=== PATIENT | male | born 1960 | race Hispanic/Latino ===

== ENCOUNTER 2017-02-22 18:23 | Observation (INO) | payer OTHER ==
[~2017-02-22] VITALS: Ht 160 cm; Wt 83.6 kg
[2017-02-22 18:37] VITALS: BP 190/105; PULSE 103; RESP 26; O2SAT 96
[2017-02-22 18:53] LABS: BASOPHILS % (AUTO) 0.5 % (0-3); EOSINOPHILS % (AUTO) 3.1 % (0-5); MONOCYTES % (AUTO) 6.4 % (4-12); Mean Corpuscular Hemoglobin 30.4 pg (27.0-35.0); Mean Corpuscular Volume 85.3 fL (81-100); NEUTROPHILS % (AUTO) 52.9 % (40-74); Platelet Count 252 bil/L (150-400)
--- NOTE | 2017-02-22 18:53 | ED.REPORT ---
HPI-Chest Pain 40 and Over Date of Service Feb 22, 2017 ED Provider: Liane Mendoza MD This is a 56 year old male with a history of hypertension presenting to the emergency department complaining of left lower extremity swelling that began 6 hours ago. Patient states he found out his cousin due to [place] today morning, took a nap, woke up and noticed the lower extremity swelling. He then visited [facility] but left after examination, states he was upset with the care there. He then developed left sided sharp chest pain with tingling in the left arm. He is experiencing "little pricks" in his chest at this time. Denies shortness of breath, nausea, vomiting, diaphoresis, abdominal pain, fever, or chills. He states that he "breaths a little harder with my anxiety attacks." Pt has not taken ASA today. Denies recent falls, injuries, or changes in level of activity. Nursing Notes Stated Complaint: CHEST PAIN, LEFT ARM PAIN Chief Complaint: Chest Pain Nursing Notes Reviewed: Yes Allergies: Coded Allergies: No Known Allergies (Unverified Allergy, Unknown, 04/06/14) No Active Prescriptions or Reported Meds General Time Seen by MD: 18:42 Chief Complaint Chest pain Hx Obtained From: Patient Arrived By: Walk-in Sudden in Onset?: Yes Onset Occurred: 5 - 8 hours ago Symptom Duration: Since onset Severity: Current: Mild Pertinent Negative: Pt denies other symptoms Recent Healthcare: Recent doctor visit Similar Sx Previous: No Past Medical History Past Medical History Reports: Hypertension Past Surgical History Denies Smoking History Current Every Day Smoker Ambulatory Status Independent Review of Systems Constitutional: Denies: Chills, Fever Cardiovascular: Reports: Chest pain GI: Denies: Abdominal pain, Nausea, Vomiting Musculoskeletal: Reports: Extremity pain, Denies: Back pain Neurologic: Denies: Change LOC, Headache, Lightheaded, Numbness Complete sys rev & neg: except as marked. Physical Exam Initial Vital Signs Vital Signs (First) Date Time Temp Pulse Resp B/P Pulse Ox O2 Delivery O2 Flow Rate FiO2 02/22/17 18:37 36.6 103 26 190/105 96 Room Air Initial VS: Reviewed Head / Eyes: Atraumatic, Normocephalic, PERRL ENT: Mucous membranes moist, Conjunctiva normal, No scleral icterus Neck: Supple, Non-tender, Full range of motion Extremities: Vascular intact, Neuro intact Skin: Warm, Dry, No cyanosis Neurologic: Alert, Oriented, Nonfocal Psychiatric: Mood/affect normal, Behavior normal, Normal thought content General/Constitutional: Awake, Alert Respiratory / Chest: Breath sounds NL, Breath sounds = bilat, No respiratory distress, No rales, No rhonchi, No wheezing, No stridor, No chest tenderness Cardiovascular: Heart rate NL, Regular rhythm, Heart sounds NL, No murmurs, Peripheral circulation NL, Pulses = bilaterally, No gross BP differential Abdomen: Soft, Non-tender, McBurney's non-tender, No guarding, No rebound, BS normoactive, No distention, No hernia, No palpable mass Lower Extremity / Pelvis / MS: Neurologic intact, Vascular intact Left knee edema without erythema, extends to calf Interpretation & Diagnostics CT angio chest: Impression: No central or gross PE, however evaluation is suboptimal due to heterogenous contrast opacification and assessment of the segmental pulmonary arteries is nondiagnostic. No acute consolidation. Approved by: Richard Segundo MD Lab Results Interpretation Result Diagram: 02/22/17184002/22/17 184 Test 02/22/17 18:41 02/22/17 19:50 White Blood Count 8.3th/mm3 (3.8-10.1) Red Blood Count 4.77mil/mm3 (4.40-5.80) Hemoglobin 14.5g/dL (13.8-17.2) Hematocrit 40.7% (41.0-50.0) Mean Corpuscular Volume 85.3fL (81-100) Mean Corpuscular Hemoglobin 30.4pg (27.0-35.0) Mean Corpuscular Hemoglobin Concent 35.6% (32.0-37.0) Red Cell Distribution Width 13.3% (12.3-15.4) Platelet Count 252bil/L (150-400) Neutrophils (%) (Auto) 52.9% (40-74) Lymphocytes (%) (Auto) 37.0% (14-46) Monocytes (%) (Auto) 6.4% (4-12) Eosinophils (%) (Auto) 3.1% (0-5) Basophils (%) (Auto) 0.5% (0-3) Prothrombin Time 9.6sec (8.1-12.5) Prothromb Time International Ratio 0.90ratio Activated Partial Thromboplast Time 27.1sec (22.8-33.0) Sodium Level 139mEq/L (134-144) Potassium Level 4.2mEq/L (3.5-5.2) Chloride Level 101mEq/L (97-108) Carbon Dioxide Level 20mmol/L (18-29) Blood Urea Nitrogen 15mg/dL (6-24) Creatinine 0.97mg/dL (0.76-1.27) Estimat Glomerular Filtration Rate 85mL/min (>59) Glucose Level 136mg/dL (60-99) Calcium Level 9.2mg/dL (8.5-10.1) Magnesium Level 1.8mg/dL (1.6-2.6) Total Bilirubin 0.2mg/dL (0.0-1.2) Aspartate Amino Transf (AST/SGOT) 36U/L (0-50) Alanine Aminotransferase (ALT/SGPT) 50U/L (0-44) Alkaline Phosphatase 80U/L (25-150) Troponin T < 0.010ug/L (0.0-0.011) Pro-B-Type Natriuretic Peptide 5.00pg/mL (0-210) Total Protein 7.3g/dL (6.4-8.4) Albumin 4.1g/dL (3.4-5.0) Thyroid Stimulating Hormone (TSH) 1.350uIU/mL (0.450-4.500) Hold Aparicio Top Tube Received (Received) Hold Urine Received (Received) ECG Interpretation ECG Interpretation: NSR at a rate of 96 T-wave inversion in AVR and V1 No ST elevation T-wave inversion in lead [address] depression in V4 Time: 18:56 Interpreted by: ED physician X-Ray Chest Interpretation Chest Xray Interpretation: Left Knee: Small joint effusion. No fracture NL X-Ray Chest Findings: No acute disease Re-Eval/Medical Decision Med Decision/Clinical Course 56-year-old male with past medical history of hypertension, tobacco abuse, family history of ACS here with chest pain and leg swelling. Differential diagnosis includes but is not limited to ACS versus DVT versus Ramirez's cyst versus PE. Patient's ultrasound showed Ramirez's cyst. His PE study was negative. His initial troponin is negative, his CBC and CMP are unremarkable. He had complete resolution of chest pain with nitroglycerin, so I have admitted him to the hospitalist for ACS rule out. He is aware and amenable to admission. Time of Eval: 20:49 Re-Evaluation/Progress Note: Chest pain resolved with nitro. Discussed need for admission, all questions addressed. Consultation : Referral / Consult Name: Shannon Burnett DO Consulted With: Hospitalist Call Returned at: 21:10 Upper Inspector: Accepts admit Counseled Regarding: Diagnosis, Lab results, Need for follow-up, Need for admission Discharge & Departure Primary Impression: Chest pain Chest pain type: unspecified Qualified Code: R07.9 - Chest pain, unspecified Disposition: ADMITTED TO HOSPITAL Discharge Condition All VS Reviewed: Yes Condition: Stable Referrals: [facility] Scribe Attestation Portions of this note were transcribed by Gibson Forde. I, Dr. Mendoza personally performed the history, physical exam and medical decision-making; I reviewed and confirmed the accuracy of the information in the transcribed note. Signed by: sue Alex. 02/22/2017, 03:00. Laine Mendoza MD Feb 22, 2017 18:53 GIBSON FORDE Feb 22, 2017 19:02
[2017-02-22] MEDS ORDERED: 0.9% Sodium Chloride 500 ML IV ONE (19:05)
[2017-02-22 19:10] LABS: INR 0.9 ratio
[2017-02-22 19:28] LABS: Magnesium 1.8 mg/dL (1.6-2.6)
[2017-02-22 19:34] LABS: TROPONIN T < 0.010 ug/L (0.0-0.011)
[2017-02-22 20:00] VITALS: BP 157/89; PULSE 103; RESP 20; O2SAT 94
[2017-02-22 21:00] VITALS: BP 151/84; PULSE 90; RESP 20; O2SAT 95
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
[2017-02-22 22:00] VITALS: BP 158/92; PULSE 86; RESP 18; O2SAT 95
[2017-02-22] MEDS ORDERED: Polyethylene Glycol (PEG) 17 Gm Powder PO PRN (22:25)
[2017-02-22] MEDS ORDERED: Alum-Mag Hydrox-Simeth 30 mL Suspension PO PRN (22:25)
[2017-02-22] MEDS ORDERED: Ondansetron 2 mg/mL 2 mL Inj IVPUSH PRN (22:25)
[2017-02-22 22:45] VITALS: PULSE 84
--- NOTE | 2017-02-22 23:16 | NUR ---
Admit Pt admitted on the floor. VSS, afebrile. Complains of mild chest pain, describes the pain as stabbing but rate the score of 3/10. Pt also complains of left leg pain. Ice packs and Tylenol PRN for pain control. Admit and history done. Will continue to monitor.
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
[2017-02-23] MEDS ORDERED: Heparin 5,000 Unit/mL Inj SUBQ SCH (00:30)
[2017-02-23 01:51] VITALS: BP 168/104; PULSE 79; RESP 18; O2SAT 96
--- NOTE | 2017-02-23 02:38 | NUR ---
NPO for Cardiac Stress Test Pt has been put on NPO for Cardiac stress test. Pt states understanding.
--- NOTE | 2017-02-23 03:21 | NUR ---
Pain Pt complains of left arm pain with a scale of 3/10. Ice packs provided.
[2017-02-23 05:25] VITALS: BP 162/94; PULSE 75; RESP 18; O2SAT 95
[2017-02-23 05:53] LABS: BASOPHILS % (AUTO) 0.6 % (0-3); EOSINOPHILS % (AUTO) 4.2 % (0-5); MONOCYTES % (AUTO) 8.9 % (4-12); Mean Corpuscular Hemoglobin 30.2 pg (27.0-35.0); Mean Corpuscular Volume 85.1 fL (81-100); NEUTROPHILS % (AUTO) 50.2 % (40-74); Platelet Count 207 bil/L (150-400)
--- NOTE | 2017-02-23 06:01 | DRSVH ---
PROCEDURE: CT ANGIO CHEST PULMONARY EMBOLISM ([id number]) INDICATIONS: chest pain, tachy TECHNIQUE: After the administration of intravenous contrast, 2 mm thick sections acquired from the pulmonary api alma rosa to the posterior costophrenic angles. 3-dimensional maximum intensity projection (MIP) coronal a nd sagittal reformats were then acquired through the thorax. For radiation dose reduction, the follo wing was used: automated exposure control, adjustment of mA and/or kV according to patient size. COMPARISON: None. FINDINGS: Image quality: Suboptimal due to heterogeneous opacification of the segmental pulmonary arteries Pulmonary arteries: The central pulmonary arteries are normal in size, and demonstrate no intralumina l filling defects to suggest central pulmonary embolism. However, the heterogeneous contrast opacific ation of the segmental pulmonary arteries precludes accurate evaluation. Lungs and pleura: Lungs are clear. No pleural effusions or pneumothorax. Central and peripheral ai rways are patent. Mediastinum: Heart size is normal, without pericardial effusion. No mediastinal or hilar adenopathy . Thoracic aorta is normal in caliber and enhancement. Esophagus is normal in caliber, without hiat al hernia. Bones and chest wall: No suspicious bony lesions. Ribs and thoracic spine appear intact throughout. Thyroid gland unremarkable. No axillary or supraclavicular adenopathy. Abdomen: Visualized upper abdominal solid organs appear normal in the early arterial phase of enhanc ement. IMPRESSION: No central or gross pulmonary embolism, however evaluation is suboptimal due to heterogeneous contras t opacification and assessment of the segmental pulmonary arteries is nondiagnostic. No acute consolidation. Dictated by: Richard Segundo M.D. on 02/22/2017 at 20:29 Approved by: Richard Segundo M.D. on 02/22/2017 at 20:33
--- NOTE | 2017-02-23 06:01 | DRSVH ---
PROCEDURE: X-RAY CHEST, TWO VIEWS ([id number]) INDICATIONS: chest pain TECHNIQUE: 2 views of the chest were acquired. COMPARISON: None. FINDINGS: Surgical changes and devices: None. Lungs and pleura: No pleural effusions or pneumothorax. Lungs are clear. Mediastinum: Mediastinal contours are normal. Heart size is normal. Bones and chest wall: No suspicious bony abnormalities. Soft tissues appear unremarkable. IMPRESSION: No acute disease Dictated by: Richard Segundo M.D. on 02/22/2017 at 19:47 Approved by: Richard Segundo M.D. on 02/22/2017 at 19:47
--- NOTE | 2017-02-23 06:01 | DRSVH ---
PROCEDURE: X-RAY LEFT KNEE, THREE VIEWS ([id number]) INDICATIONS: knee swelling TECHNIQUE: 3 views of the knee were acquired. COMPARISON: None. FINDINGS: Bones: No fractures or dislocations. No suspicious bony lesions. Soft tissues: Small joint effusion IMPRESSION: Small joint effusion. No fracture Dictated by: Richard Segundo M.D. on 02/22/2017 at 19:48 Approved by: Richard Segundo M.D. on 02/22/2017 at 19:48
--- NOTE | 2017-02-23 06:02 | DRSVH ---
PROCEDURE: US VEINOUS LEG DUPLEX UNILATERAL, LEFT INDICATIONS: left leg swelling TECHNIQUE: Real-time imaging, as well as color and pulse Doppler interrogation, were performed of the lower extr emity deep veins from the inguinal ligament to the popliteal fossa. COMPARISON: None. FINDINGS: The deep veins are normally compressible, and free of intraluminal thrombus. Color and pu lse Doppler demonstrate normal phasic intraluminal flow. There is normal augmentation response to di stal compression maneuver. There is a Ramirez's cyst measuring 3.1 x 4.5 by 1.0 cm IMPRESSION: No evidence of deep venous thrombosis. Ramirez's cyst. Dictated by: Richard Segundo M.D. on 02/22/2017 at 22:07 Approved by: Richard Segundo M.D. on 02/22/2017 at 22:08
--- NOTE | 2017-02-23 06:57 | NUR ---
Left AMA Pt decided to leave AMA. Explained to pt about the diagnosis of chest pain if untreated could result into . Pt verbalized understanding and signed AMA form. Pt then escorted with the security outside the facility.
[2017-02-24] MEDS ORDERED: NICO1PAT6 TOPICAL (13:52)
[2017-02-24] MEDS ORDERED: LISI-571 PO (13:52)
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
== END 2017-02-23 07:00 | disposition left against medical advice (07) ==
LOC: SED 18:23 → MPC 21:46
PROVIDERS: ADMIT Internal Medicine; ATTEND Internal Medicine
DX: R07.9 Chest pain, unspecified (principal); I10 Essential (primary) hypertension; R73.9 Hyperglycemia, unspecified; F41.9 Anxiety disorder, unspecified; M71.22 Synovial cyst of popliteal space [Baker], left knee; E78.5 Hyperlipidemia, unspecified; M10.9 Gout, unspecified; Z91.14 Patient's other noncompliance with medication regimen; F17.210 Nicotine dependence, cigarettes, uncomplicated; Z59.0 Homelessness
CPT/HCPCS: 36415; 71020; 71275; 73562; 80053; 80061; 83036; 83735; 83880; 84443; 84484; 85025; 85610; 85730; 93005; 93970; 99285; G0378; J1644; J7040; Q9967

== ENCOUNTER 2017-02-23 08:48 | Observation (INO) | payer OTHER ==
[2017-02-23] VITALS (9 sets, daily range): BP systolic 138–161; BP diastolic 3–105; PULSE 68–96; RESP 17–25; O2SAT 94–98
[~2017-02-23] VITALS: Ht 160 cm; Wt 80.3 kg
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
[2017-02-23 10:10] LABS: BASOPHILS % (AUTO) 0.6 % (0-3); EOSINOPHILS % (AUTO) 2.1 % (0-5); Mean Corpuscular Hemoglobin 30.5 pg (27.0-35.0); Mean Corpuscular Volume 84.6 fL (81-100); NEUTROPHILS % (AUTO) 68.1 % (40-74); Platelet Count 215 bil/L (150-400)
--- NOTE | 2017-02-23 10:30 | DRSVH ---
PROCEDURE: X-RAY CHEST ONE VIEW, PORTABLE ([id number]) INDICATIONS: chest pain TECHNIQUE: One view of the chest was acquired. COMPARISON: [facility], CR, XR CHEST 2VW, 02/22/2017, 19:03. FINDINGS: Surgical changes and devices: None. Lungs and pleura: No pleural effusions or pneumothorax. Lungs are clear. Mediastinum: Mediastinal contours appear normal. Heart size is normal. Bones and chest wall: No suspicious bony lesions. Overlying soft tissues appear unremarkable. IMPRESSION: No acute pulmonary process. Dictated by: Lois Dasilva M.D. on 02/23/2017 at 10:28 Approved by: Lois Dasilva M.D. on 02/23/2017 at 10:28
[2017-02-23 10:45] LABS: Magnesium 1.9 mg/dL (1.6-2.6)
[2017-02-23 10:49] LABS: TROPONIN T < 0.010 ug/L (0.0-0.011)
[2017-02-23] MEDS ORDERED: Alum-Mag Hydrox-Simeth 30 mL Suspension PO PRN ×2 (12:15→18:40)
[2017-02-23] MEDS ORDERED: Ondansetron 2 mg/mL 2 mL Inj IVPUSH PRN ×2 (12:15→18:40)
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
[2017-02-23] MEDS ORDERED: Polyethylene Glycol (PEG) 17 Gm Powder PO PRN (18:40)
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
--- NOTE | 2017-02-23 19:03 | DRSVH ---
[facility] [address] [place] [address] Echocardiogram Report Name: CHRISTIANO AGUIAR PStudy Date: 02/23/2017 Height: 63 in Hospital [facility] Weight: 178 lb Gender: Male BSA: 1.8 m2 : 1960 Age: 56 yrs BP: 159/92 mm Hg Reason For Study: Chest pain Ordering Physician: [facility] Performed By: Wayne Delvalle Referring Physician: MONY ALEJANDRO Interpretation Summary 1) Normal left ventricular thickness, size, wall motion, and systolic function (EF 60-65%). 2) Normal right ventricular size and function. 3) No significant valvular abnormalities. 4) Hypertension present during the study (BP 159/92). 5) No prior Echo available for comparison. Procedure: A two-dimensional transthoracic echocardiogram with color flow and Doppler was performed. The study quality was technically adequate. There is no prior echocardiogram noted for this patient. The patient was in normal sinus rhythm during the exam. Left Ventricle: The left ventricle is normal in size, wall thickness, and systolic function without any focal wall motion abnormalities. The ejection fraction is estimated to be 60-65%. Assessment of diastolic parameters indicates normal left ventricular diastolic function and normal filling pressures. Right Ventricle: The right ventricle is normal in size, thickness and function. Atria: Both atria are normal in size. There is no Doppler evidence for an interatrial shunt. Mitral Valve: The mitral valve is normal in structure and function. There is no mitral regurgitation noted. Aortic Valve: The aortic valve is trileaflet. The aortic valve opens well. There is mild aortic valve sclerosis. There is no aortic valve stenosis. No aortic regurgitation is present. Tricuspid Valve: The tricuspid valve is normal. Pulmonary artery pressures cannot be estimated because of the lack of a measurable TR jet velocity. Pulmonic Valve: The pulmonic valve leaflets are thin and pliable; valve motion is normal. There is no pulmonic valvular regurgitation. Great Vessels: The aortic root is normal size. The ascending aorta is normal in size. The aortic arch is normal in size. The pulmonary artery is normal size. The IVC is of normal diameter and collapses greater than 50% with a sniff. This suggests a low right atrial pressure of 3 mm Hg. Pericardium/ Pleura There is no pericardial effusion. There is no pleural effusion. MMode/2D Measurements & Calculations LVIDd: 4.8 cm LA dimension: 4.1 cm RA long axis LVOT diam: 2.1 cm LVIDs: 2.9 cm AoV Opening FS: 38.1 % LA A2 area: 14.7 cm RA area EPSS: 0.58 cm LA A4 area: 17.6 cm Ao root diam IVSd: 0.96 cm LA length (vol) : 11.0 cm LVPWd: 0.90 cm RA vol Aortic Jxn: 2.5 cm LA vol: 42.7 ml : 23.2 ml asc Aorta Diam LA vol index RA : 12.6 mm2 Ao Arch Diam (Prox : 23.2 ml/m2 Trans): 2.6 cm LV resendiz. diameter/BSA LV sys. diameter/BSA RVD1 (basal) RVD2 (mid): 3.2 cm (cm/m^2): 2.6 (cm/m^2): 1.6 TAPSE: 2.2 cm Doppler Measurements & Calculations Ao V2 max MV E max boo MV E/A: 0.80 PA V2 max : 149.4 cm/sec : 59.7 cm/sec Med Peak E' Boo : 132.0 cm/sec Ao max PG MV A max boo PA mean PG : 8.9 mmHg : 74.8 cm/sec E/E' med: 7.1 Ao mean PG MV P1/2t: 59.1 msec Lat Peak E' Boo PA Accel Time : 0.12 sec LVOT Max Boo E/E' lat: 5.7 : 109.4 cm/sec E/e' average: 6.4 Pulm A Revs Dur JADA(I,D): 2.6 cm sev ratio MV dec time MV P1/2t max boo Ao V2 mean LV V1 max PG : 0.20 sec : 101.8 cm/sec MVA(P1/2t): 3.7 cm2 Ao V2 VTI: 26.8 cm LV V1 VTI JADA(V,D): 2.5 cm2 : 20.7 cm PA V2 mean JADA indexed to BSA : 90.2 cm/sec (cm^2/m^2): 1.4 PA pr(Accel) : 26.1 mmHg Reading Physician:07:02 PM
--- NOTE | 2017-02-23 21:56 | NUR ---
CARRIE Pt had a CIWA score of 11, started 5mg Valium. Recheck score, now on 3. Will continue to monitor. Addendum: 02/24/17 at 0206 by ARPITA TEAGUE RN CIWA re-evaluation, current score 4.
[2017-02-24] VITALS (7 sets, daily range): BP systolic 145–181; BP diastolic 76–106; PULSE 68–91; RESP 16–20; O2SAT 95–99
--- NOTE | 2017-02-24 05:57 | NUR ---
CIWA pt have a ciwa score of 8, moderate level of anxiety. when asked if he knows where he is pt states "I know I'm in the hospital but i don't know name". Moderate tremors on hands, no nausea. Reports of seeing pictures. Will continue to monitor.
[2017-02-24 06:08] LABS: Mean Corpuscular Volume 85.3 fL (81-100)
[2017-02-24 06:18] LABS: INR 0.94 ratio
[2017-02-24 06:46] LABS: TROPONIN T 0.01 ug/L (0.0-0.011)
[2017-02-24 07:10] LABS: Magnesium 2.2 mg/dL (1.6-2.6)
[2017-02-24] MEDS ORDERED: Pantoprazole 40 mg ER24 Tablet PO SCH (07:30)
[2017-02-24] MEDS ORDERED: hydrALAZINE 20 mg/mL Inj IV ONE (07:55)
[2017-02-24] MEDS ORDERED: Multivit-Miner-Folic Acid-Iron Tablet PO SCH (08:30)
--- NOTE | 2017-02-24 11:04 | NUR ---
Social Work - Brief Note/Readiness for Discharge Data: Pt is a 56 y/o male admitted 02/23/17 for chest pain. Pt is likely to discharge today per morning rounds and is up and independent in room. Insurance is [employer] and pt has no PCP. SW met with pt at bedside to discuss discharge plan. Pt stated that he has been living in his car but will be moving in with his brother at discharge and feels this is a safe place to be. SW asked if pt needs assistance with setting up PCP appt at [facility] and he said he would. UR specialist set appt for March 05 and SW communicated this to pt. Pt's brother will transport maddie ein POV at discharge. No additional needs assessed at this time. SW will continue to follow. Assessment: Pt who is independent at baseline Plan: Pt to dischareg home with brother via POV. No additional needs assessed at this time. SW will continue to follow. EVELYN Buenrostro
--- NOTE | 2017-02-24 11:20 | NUR ---
Scheduled hospital follow up appointment for March 05 check in at 415PM for 430PM appointment with . Updated VASCULAR PHYSICIAN
--- NOTE | 2017-02-24 12:29 | DRSVH ---
PROCEDURE: 1 DAY TREADMILL STRESS TEST Rest and exercise myocardial perfusion SPECT with gated imaging and ejection fraction RADIOPHARMACEUTICAL: 9.3 mCi Tc-99m tetrafosmin IV at rest and 26.7 mCi Tc-99m tetrafosmin IV at pea k exercise. [id number] was performed. INDICATIONS: CHEST PAIN. TECHNIQUE: Radiopharmaceutical was injected at peak stress test, and also at rest. SPECT images wer e obtained. SPECT myocardial perfusion images were displayed in short axis, horizontal long axis, an d vertical long axis views. Gated images were reviewed using [employer] software. COMPARISON: None. CARDIAC STRESS: A standard Brent treadmill exercise tolerance test was performed by the patient under the supervision of an attending staff. The patient exercised for 7 minutes and 25 seconds; functional aerobic impai rment (VANDA) is 20 %. Hemodynamic data: There is normal blood pressure and heart rate response to exercise stress. Patien t achieved 85% of maximum predicted heart rate at peak exercise. Symptoms: Patient reported chest pressure (non limiting). He stopped secondary to musculoskeletal i ssues. EKG: No diagnostic EKG changes of ischemia; no ectopy. FINDINGS: Raw data: There is good myocardial labeling by radiotracer. No significant motion artifacts. Left ventricle function: Gated images demonstrate normal left ventricle wall thickening. No segment al wall motion abnormality. No transient ischemic dilation by visual inspection. The left ventricle resting end-diastolic volume is 79 mL. Left ventricle stress ejection fraction is >70% ; normal sarah ues are above 45%. Myocardial perfusion: No imaging defects are appreciated. IMPRESSION: 1. Appropriate hemodynamic response to exercise. 2. Non limiting chest pressure (max 4/10) without significant ECG changes appreciated ( clinical antonio elation recommended). 3. No scintigraphic evidence for significant areas of myocardial ischemia at the level of stress achi eved. 4. Normal left ventricular size and systolic function. Dictated by: Norma Perrin M.D. on 02/24/2017 at 12:19 Approved by: Norma Perrin M.D. on 02/24/2017 at 12:28
[2017-02-24] MEDS ORDERED: NICO1PAT6 TOPICAL (13:52)
[2017-02-24] MEDS ORDERED: LISI-571 PO (13:52)
--- NOTE | 2017-02-24 14:00 | PCM.DIMED ---
Discharge Instructions Date of Service Feb 24, 2017 Dates of Hospitalization Feb 23, 2017 at 13:02 Discharge Diagnosis Discharge Diagnosis # Acute chest pain, present on admission. Unclear exact etiology but possibly due to anxiety with negative cardiac workup (including ruled out for acute myocardial infarction) and ruled out for pulmonary embolism on 02/22/17. # Hypertension. poorly controlled. 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 Active. # History of anxiety, present on admission. Ongoing # Hyperglycemia, present on admission. Resolved -HbA1c 5.7 # History of alcohol abuse with some evidence of acute withdrawal during this hospitalization. Improved. # History of tobacco use. Diet Low fat, Low Sodium, Heart Healthy Activity No restrictions Call your provider Fever or Chills, Shortness of breath, Chest pain, Vomitting Patient Instructions Seek immediate medical attention if any new or worsening signs or symptoms occur. Follow-up plan 1. Followup with new primary care provider () on 03/05/17 at 4: 15PM. [facility] [address] [place] [id number] Follow-up Provider: Elia Johnson Follow-up with PCP in: Other (03/05/17 at 4:15PM) Mariusz Ortega Feb 24, 2017 14:00
--- NOTE | 2017-02-24 14:24 | NUR ---
Social Work - Discharge Data: Pt is a 56 y/o male admitted 02/23/17 for chest pain. Pt is medically cleared to discharge and is up and independent in room. R specialist set appt for March 05 and SW communicated this to pt. Pt's brother will transport home in POV at discharge. No additional needs assessed at this time. Assessment: Pt who is independent at baseline Plan: Pt to discharge home with brother via POV. No additional needs assessed at this time. EVELYN Buenrostro
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
--- NOTE | 2017-02-24 16:32 | NUR ---
Discharge Patient ambulated from unit accompanied by staff. Patient alert and oriented at time of discharge. Patient reporting continued chest pain/neck/lt arm 01/23 with occasional sharp pains. Patient plans to go to [facility] temporarily. Stress test and echo completed prior to discharge. Discharge instructions/medications reviewed with patient prior to discharge. All questions addressed. Patient belongings, discharge instructions and prescriptions in hand.
== END 2017-02-24 16:31 | disposition home or self-care (01) ==
LOC: SED 08:48 → MPC 13:02
PROVIDERS: ADMIT Internal Medicine; ATTEND Internal Medicine
DX: R07.9 Chest pain, unspecified (principal); I10 Essential (primary) hypertension; M25.562 Pain in left knee; M71.22 Synovial cyst of popliteal space [Baker], left knee; R73.9 Hyperglycemia, unspecified; F10.10 Alcohol abuse, uncomplicated; E78.5 Hyperlipidemia, unspecified; F17.210 Nicotine dependence, cigarettes, uncomplicated; F41.9 Anxiety disorder, unspecified; Z59.0 Homelessness
CPT/HCPCS: 36415; 71010; 78452; 80048; 80053; 83735; 84484; 85025; 85027; 85610; 85730; 93005; 93017; 96374; 96375; 99285; A9502; C8929; G0378; J0360; J3360